=== PATIENT | male | born 1970 | race Caucasian/White ===

== ENCOUNTER → 2024-02-01 06:20 | Day surgery (SDC) | payer OTHER, SELFPAY | LOC: GI 06:20 | PROVIDERS: ATTENDING PHYSICIAN Internal Medicine Gastroenterology | DX: Z12.11 Encounter for screening for malignant neoplasm of colon (principal); K64.8 Other hemorrhoids | CPT/HCPCS: G0121 ==

== ENCOUNTER → 2025-02-09 13:47 | Outpatient (REF) | payer OTHER, SELFPAY | LOC: EMG 13:47 | PROVIDERS: ATTENDING PHYSICIAN Physician Assistant Medical | DX: G62.9 Polyneuropathy, unspecified (principal); R20.0 Anesthesia of skin | CPT/HCPCS: 95886; 95911 ==